=== PATIENT | male | born 1985 | race Caucasian/White ===

== ENCOUNTER → 2017-02-16 | Outpatient (CLI) | payer OTHER ==
[~2017-02-16] MED LIST: GADAVIST IV PRN
--- NOTE | 2017-02-16 08:00 | DIAGNOSTIC IMAGING REPORT ---
BRAIN COMBO FOR IAC HISTORY: 31 years-old Male [id number] acute vertigo with vision problems COMPARISON: None available TECHNIQUE: Multiplanar multisequence MRI of the brain was obtained both with and without the use of contrast utilizing 9.5 mL Gadavist. Institutional internal auditory canal protocol was used FINDINGS: No restricted diffusion identified. Midline structures including the corpus callosum, brainstem, optic chiasm, infundibulum, pituitary and pineal glands are unremarkable in the sagittal T1 series. No cerebellar tonsillar herniation. No significant degenerative changes of the imaged cervical spine. The large [id number] pump press operator localizer images demonstrate no gross abnormality. There is no acute intracranial hemorrhage, midline shift, abnormal extra-axial collections, hydrocephalus or intracranial mass identified. No significant parenchymal signal abnormalities. No cerebellar pontine angle mass. Course of the 7th and 8th cranial nerves are within normal limits. Bilateral internal auditory canals are within normal limits. The cisternal portions of the trigeminal nerves are within normal limits. There is no abnormal intra-axial or extra-axial enhancement. The major flow voids at the level of the skull base are patent. Mastoid air cells are clear. Mild mucosal thickening of the ethmoid air cells. Orbits are symmetric. Scalp, calvarium and soft tissues are unremarkable. IMPRESSION: 1. No acute intracranial abnormality. 2. Normal appearance of the bilateral internal auditory canals without focal mass or abnormal enhancement. The above report was generated using voice recognition software. It may contain grammatical, syntax or spelling errors. Electronically signed by: Emeka Mena M.D. 02/16/2017 7:59 AM Dictated Date/Time: 02/16/2017 7:40 AM
== END | disposition home or self-care (01) ==
LOC: C.MRI 06:20
PROVIDERS: ATTEND Psychiatry & Neurology Neurology
DX: R42 Dizziness and giddiness (principal)

== ENCOUNTER 2017-10-04 08:12 | Emergency (ER) | payer OTHER ==
[~2017-10-04] VITALS: Ht 185.4 cm; Wt 91.8 kg
[2017-10-04 08:18] VITALS: TEMP 36.4; Ht 185.4 cm; Wt 91.8 kg
[2017-10-04] MEDS ORDERED: AMPH20TA2 PO (08:58)
[2017-10-04] MEDS ORDERED: CYCLOBENZAPRINE HCL 10 MG TAB PO STA (09:08)
[2017-10-04] MEDS ORDERED: CYCL10TA6 PO (09:10)
[2017-10-04 09:15] VITALS: BP 152/64; PULSE 68; O2SAT 99
--- NOTE | 2017-10-04 14:43 | EMERGENCY ROOM VISIT NOTE ---
History First contact with patient: 08:54 Chief Complaint: BACK PAIN Stated Complaint: BACK PAIN, PERIODIC BLINDNESS AND NAUSEA History of Present Illness The patient is a 32 year old male who presents to the Emergency Room with complaints of lower back pain after bending over last night while brushing his teeth to spit in his bathroom sink. He reports that it is an older house, and the sinks are very low. The patient reports bending forward and not to the side. He also denies any twisting motion. The patient reports feeling a pop and immediate pain in the back. He denies any pain radiating up the back or into the buttocks. He denies any prior history of back injuries or surgeries, and currently rates his discomfort an 8 out of 10. He reports that it feels like his muscle is in spasm. Review of Systems 10 system review was performed and was negative except for pertinent positives and negatives as indicated in history of present illness Past Medical/Surgical History Medical Problems: (1) ADHD (2) ASD (atrial septal defect) (3) Asthma (4) Kidney stones (5) OCD (obsessive compulsive disorder) (6) Ocular migraine Surgical Problems: (1) History of tonsillectomy (2) History of tympanostomy tube placement Family History FH: cancer FH: diabetes mellitus FH: lung disease Social History Smoking Status: Never Smoker Alcohol Use: occasionally Marital Status: Housing Status: lives with family Occupation Status: employed Current/Historical Medications Scheduled Amphetamine-Dextroamphetamine 20MG (Adderall 20MG), 20 MG PO BID Scheduled PRN Cyclobenzaprine Hcl (Flexeril), 10 MG PO TID PRN for Spasm Physical Exam Vital Signs Date Time Temp Pulse Resp B/P (MAP) Pulse Ox O2 Delivery O2 Flow Rate FiO2 10/04/17 09:15 68 18 152/64 99 Room Air 10/04/17 08:18 36.4 78 18 122/79 97 Room Air Physical Exam CONSTITUTIONAL: Healthy and well nourished. Alert and oriented X 3 with positive affect. Patient appears in mild discomfort from pain. HEENT: Normocephalic, atraumatic. Pupils equal, round and reactive. NECK: Full active range of motion without discomfort. RESPIRATORY: Clear to auscultation bilaterally with no wheezing, crackles, rhonchi or stridor. CARDIOVASCULAR: Regular rate and rhythm with no murmurs, rubs or gallops. GASTROINTESTINAL: Bowel sounds present in all quadrants. Soft and nontender to palpation. MUSCULOSKELETAL: Examination shows tenderness to palpation of the middle lumbar paraspinous muscles, left worse than right. No obvious palpable spasm. He has no focal tenderness through the central lumbar spine. Negative logroll. Negative sitting straight leg raise. INTEGUMENTARY: No rash or other significant dermatologic conditions noted. NEUROLOGIC: No focal neurologic deficits noted. Medical Decision & Procedures Medications Administered Medications (Trade) Dose Ordered Sig/Roderick Route Start Time Stop Time Status Last Admin Dose Admin Cyclobenzaprine HCl (Flexeril Tab) 10 mg NOW STAT PO 10/04/17 09:08 10/04/17 09:09 DC 10/04/17 09:15 10 MG ED Course Patient history and physical exam were performed. Nurse's notes were reviewed. Vital signs were reviewed and were normal. History and clinical exam are consistent with an acute lumbar strain. The patient was encouraged to intermittently apply ice to the region. He will be provided a prescription for Flexeril. He was encouraged alternate ibuprofen and Tylenol for baseline pain relief. He was instructed to avoid sitting for long periods of time, or heavy lifting. The patient reports he leaves tomorrow morning for a flight to [place] for his job. The patient was administered a Flexeril 10 mg prior to discharge, was happy with plan of care, and rated his discomfort a 7 out of 10 at the conclusion of my exam. Medical Decision [place] Drug Monitoring Program Search Results: patient reviewed within database, no issues identified Medication Reconcilliation Current Medication List: was personally reviewed by me Blood Pressure Screening Patient's blood pressure: Normal blood pressure Impression Primary Impression: Lumbar strain Departure Information Dispostion Home / Self-Care Condition GOOD Prescriptions Cyclobenzaprine Hcl (FLEXERIL) 10 Mg Tab 10 MG PO TID Y for Spasm, #15 TAB Prov: Scott Mcgee PA 10/04/17 Referrals Marisela Guzman M.D. (PCP) Krystina Loving, C.R.N.P Forms HOME CARE DOCUMENTATION FORM, IMPORTANT VISIT INFORMATION Patient Instructions My [facility], ED Sprain Strain Lumbar Additional Instructions Intermittently apply ice over the next few days, then moist heat as needed. Avoid sitting for long periods of time or heavy lifting. Ibuprofen 800 mg and/or Tylenol 1000 mg every 8 hours. You may also alternate these medications for more effective pain relief: Ibuprofen --4 HRS--> Tylenol --4 HRS--> ibuprofen --4 HRS--> Tylenol .... Flexeril as needed for muscle spasm. Do not drink alcohol or drive while taking Flexeril. Follow-up with your family doctor as needed if symptoms are not improving within the next 3-5 days. Problem Qualifiers Primary Impression: Lumbar strain Encounter type: initial encounter Qualified Codes: S39.012A - Strain of muscle, fascia and tendon of lower back, initial encounter
== END 2017-10-04 09:20 | disposition home or self-care (01) ==
LOC: C.EDB 08:14 → C.EDA 09:20
DX: S39.012A Strain of muscle, fascia and tendon of lower back, initial encounter (principal); X50.1XXA Overexertion from prolonged static or awkward postures, initial encounter; J45.909 Unspecified asthma, uncomplicated; F90.9 Attention-deficit hyperactivity disorder, unspecified type; Z79.899 Other long term (current) drug therapy